=== PATIENT | female | born 1965 | race Caucasian/White ===

== ENCOUNTER 2025-06-09 19:15 | Observation (INO) | payer OTHER, SELFPAY ==
--- NOTE | ~2025-06-09 | US_ITS ---
LIMITED ABDOMINAL ULTRASOUND INDICATION: Choledocholithiasis vs cholangitis COMPARISON: CT of same day FINDINGS: Liver: Monotonous in echotexture, consistent with underlying fatty infiltrate. There is hepatopetal flow in the portal vein. Common bile duct: Dilated at 8 mm, unchanged from the CT of same day. The gallstone seen in the CBD by CT is not seen sonographically. Gallbladder: The gallbladder wall is normal in thickness. The tiny gallstone seen by CT is not identified sonographically. No stones were seen. There is gallbladder sludge. Regalado's sign: Negative Pancreas: The imaged portions appear normal. Right kidney: Right kidney appears normal on the images provided. IMPRESSION: CBD is still dilated at 8 mm. Gallbladder sludge. Fatty liver. Reviewed, dictated and finalized at location A. DING INSPECTOR
--- NOTE | ~2025-06-09 | XR_ITS ---
EXAMINATION: X-ray ERCP INDICATION: Pain. COMPARISON: None TECHNIQUE: 4 fluoroscopic images of the right upper quadrant were obtained during ERCP. Fluoroscopy exposure time was 343 seconds. Air Kerma 59.75 mGy. FINDINGS/IMPRESSION: No radiologist was present or involved at the time of the procedure. Static images were submitted for interpretation. Images demonstrate opacification of the CBD and part of the intrahepatic biliary tree. Fluoroscopic documentation of ERCP. Please refer to the operative note for complete procedural details Reviewed, dictated and finalized at location A. [employer] E[employer]ICS MANAGER
--- NOTE | ~2025-06-09 | CT_ITS ---
EXAMINATION: CT abdomen pelvis w con DATE: 06/10/2025 01:34 INDICATION: Generalized abdominal pain. TECHNIQUE: Computed tomography (CT) of the abdomen and pelvis was performed with 100 mL Omnipaque 350 intravenous contrast. Automated exposure control and iterative reconstruction technique were employed. The dose-length product was 453.49 mGy-cm. COMPARISON: None. FINDINGS: The visualized portions of the lung bases demonstrate mild atelectasis. No pleural effusion. The heart size is normal. No pericardial effusion. There is a small sliding hiatal hernia. There is diffuse hepatic steatosis. There is a gallstone in the gallbladder, which is normal in size. There is a 5 mm stone in the common bile duct. The common duct is mildly dilated to 8 mm. There is enhancement of the common bile duct pulido. The spleen, pancreas, adrenal glands, and kidneys are normal. There is diverticulosis of the colon without evidence of diverticulitis. There are no dilated loops of bowel. The appendix is normal. There are no pathologically enlarged lymph nodes. There is no free intraperitoneal fluid. There are bilateral hip arthroplasties. There is severe thoracic and lumbar spondylosis. IMPRESSION: 1. 5 mm stone in the common bile duct with mildly dilated common duct. Enhancement of the common bile duct pulido is suspicious for ascending cholangitis. 2. Cholelithiasis. Reviewed, dictated and finalized at location E. SPRINKLER IMPRESSION: 1. 5 mm stone in the common bile duct with mildly dilated common duct. Enhancem ent of the common bile duct pulido is suspicious for ascending cholangitis. 2. Cholelithiasis.
[2025-06-09 19:19] VITALS: BP 130/59; PULSE 65; RESP 18; TEMP 36.4; O2SAT 100
[2025-06-09 23:14] VITALS: BP 114/78; O2SAT 100
[2025-06-09 23:15] VITALS: BP 127/80; O2SAT 98
[2025-06-09 23:28] LABS: Hematocrit 44.1 % (37.0-47.0); Hemoglobin 14.8 g/dL (12.0-15.0); Immature Granulocyte Percent A 0.2 % (0-0.5); Lymphocytes Absolute Auto 0.92 K/mm3 (0.9-3.2); Mean Corpuscular HGB Conc 33.6 g/dl (32-36); Mean Corpuscular Hemoglobin 30.0 pg (26-34); Mean Corpuscular Volume 89.3 fl (80-100); Nucleated Red Blood Cells Absolute Auto 0.000 K/mm3 (0.0-0.012); Nucleated Red Blood Cells Perc 0.0 % (0.0-0.2); Platelet Count Result 178 k/mm3 (150-375); Red Blood Count 4.94 M/mm3 (4.2-5.4); White Blood Count 4.1 K/mm3 (4.5-10.0)
[2025-06-09 23:29] LABS: Add Urine Microscopic? YES; Appearance Urine Clear (Clear); Glucose Urine UA Negative (Negative); Leukocyte Esterase Ur Negative LEU/UL (Negative); Nitrate Urine Negative (Negative); Specific Grav Ur 1.009 (1.001-1.035)
[2025-06-09 23:31] VITALS: BP 114/71; O2SAT 97
[2025-06-09 23:37] LABS: Alanine Aminotransferase 604 U/L (6-35); Albumin Level 4.8 g/dL (3.5-5.1); Alkaline Phosphatase 142 U/L (38-126); Anion Gap 8 mmol/L (4-12); Aspartate Amino Transferase 555 U/L (14-36); Bilirubin,Total 5.0 mg/dL (0.2-1.3); Blood Urea Nitrogen 11 mg/dL (7-17); Calcium 9.5 mg/dL (8.4-10.2); Carbon Dioxide 26 mmol/L (22-30); Chloride 101 mmol/L (98-107); Estimated CRCL calculation 57 ml/min; Estimated Glomerular Filt Rate > 60; Glucose 104 mg/dL (65-110); Lipase 165 U/L (23-300); Potassium 3.9 mmol/L (3.4-5.0); Sodium 135 mmol/L (137-145); Total Protein 8.1 g/dL (6.3-8.2)
[2025-06-09 23:45] VITALS: BP 112/70; O2SAT 97
[2025-06-10] VITALS (36 sets, daily range): BP systolic 90–130; BP diastolic 53–79; PULSE 50–75; RESP 14–20; TEMP 36–36.4; O2SAT 92–100; BMI 24.7
--- NOTE | 2025-06-10 00:34 | ED.ABDPAIN ---
HPI - Abdominal Pain General Chief Complaint: Abdominal Pain <Yoko Ivey APRN - Last Filed: 06/10/25 03:36> Stated Complaint: abd pain <Yoko Ivey APRN - Last Filed: 06/10/25 03:36> Time Seen by Provider: 06/09/25 23:40 <Yoko Ivey APRN - Last Filed: 06/10/25 03:36> History of Present Illness HPI narrative: Patient is a 60-year-old female who presents to the ER with abdominal pain and bloating for the past couple of months. She reports she has had weekly episodes of these symptoms but over the past week they have become more frequent. Patient endorses decreased p.o. intake and increased gassiness. She also endorses increased water intake and orange urine. Patient endorses a history of acid reflux and H pylori. She denies any recent fevers, urinary symptoms, or chest pain. Patient does reports her abdominal pain occasionally radiates to her back. <Yoko Ivey APRN - Last Filed: 06/10/25 03:36> Related Data Home Medications: Home Medications ?Medication ?Instructions ?Recorded ?Confirmed ?Last Taken ?Type No Home Medications 06/10/25 06/10/25 Unknown History <Yoko Ivey APRN - Last Filed: 06/10/25 03:36> Allergies/Adverse Reactions: Allergies Allergy/AdvReac Type Severity Reaction Status Date / Time Penicillins Allergy Unknown Rash Verified 06/10/25 13:34 <Yoko Ivey APRN - Last Filed: 06/10/25 03:36> Review of Systems Review of Systems: All systems reviewed & are unremarkable except as noted in HPI and below <Yoko Ivey APRN - Last Filed: 06/10/25 03:36> [facility] Past Medical History Medical History: Medical History (Updated 06/10/25 @ 18:41 by Latanya Clements MD) Fatty liver Upper abdominal pain Elevated liver enzymes <Yoko Ivey APRN - Last Filed: 06/10/25 03:36> Social History Social History: Social History Smoking packs per day: 1 Smoking cigarettes per day: 20.0 Years smoked: 40 Smoking pack-years: 40.00 Smoking status: Current every day smoker Tobacco type: cigarettes Alcohol intake: never Substance use: never Substance use type: does not use Lack of Transportation: No Lack of Food: Never True Current Housing: I Have Housing Concerned About Future Housing: No Difficulty Paying Gas/Electric Bills: No Difficulty Paying for Meds: No Currently Unemployed: No Education: High School Diploma/GED Difficulty w/ Childcare or Family Care: No Spiritual care concerns: No <Yoko Ivey, GOVERNMENT AFFAIRS RESEARCHER - Last Filed: 06/10/25 03:36> Exam Narrative: GENERAL: Ill appearing, well-nourished, non-toxic, in no acute distress. HEAD: Normocephalic, atraumatic. NECK: Supple. No adenopathy, no masses. RESPIRATORY: Airway patent, respirations nonlabored. Clear to auscultation bilaterally, no rales, rhonchi, wheezing. CARDIOVASCULAR: Regular rate and rhythm without murmurs, rubs, or gallops. Peripheral pulses 2+ and equal bilaterally. ABDOMINAL: Soft, nontender, mildly distended. Normoactive BS. MUSCULOSKELETAL: Moves all extremities. Strength/ROM intact without gross deformities. SKIN: Warm, dry, slightly jaundice. No rashes. NEURO: A&O X3. Speech clear. Cranial nerves II-XII intact. No ataxic movements. PSYCHIATRIC: Appropriate mood and affect. Normal interaction. <Yoko Ivey, GOVERNMENT AFFAIRS RESEARCHER - Last Filed: 06/10/25 03:36> Course Course Emergency Course: Patient signed out to me pending result of CT scan (significant delay in interpretation overnight by stat rad for unclear reasons) which results as below which appears equivocal for choledocholithiasis versus cholangitis. RUQ US order placed (will not be performed until after 7am). Patient is assessed at bedside at approximately 5:05 a.m.. She reports being pain free at this time. She does continue to be gassy. Discussed her work up findings thus far. Discussed with on-call lyft driver Dr Meeks who confirms that he does ERCP. He states it is reasonable to start antibiotics and he requests that surgery also be consulted and that patient be admitted to the hospitalist. Antibiotics broad spectrum to cover gram negative enterics such as E coli, Enterobacter, Pseudomonas. The initial consideration was Zosyn but patient lists an allergy to penicillins. Given this, I did discuss with pharmacist Kristopher. Decision was made to start meropenem given this will provide coverage for these organisms. Blood culture ordered. Discussed with education courses sales representative general surgeon Dr Kingsley. Amenable to consultation. Discussed with hospitalist Dr Ang who accepts admission. She has otherwise been hemodynamically stable. <Latanya Clements MD - Last Filed: 06/10/25 18:41> Vital Signs Vital signs: Vital Signs Temperature 97.6 F 06/09/25 19:19 Pulse Rate 65 06/09/25 19:19 Respiratory Rate 18 06/09/25 19:19 Blood Pressure 130/59 L 06/09/25 19:19 Pulse Oximetry 100 06/09/25 19:19 Oxygen Delivery Room Air 06/09/25 19:19 Temperature 97.4 F L 06/10/25 14:57 Pulse Rate 54 L 06/10/25 15:57 Respiratory Rate 18 06/10/25 15:57 Blood Pressure 125/73 06/10/25 15:57 Pulse Oximetry 98 06/10/25 15:57 Oxygen Delivery Room Air 06/10/25 15:57 Oxygen Flow Rate 5 06/10/25 15:07 <Yoko Ivey APRN - Last Filed: 06/10/25 03:36> Vital Signs Temperature 97.6 F 06/09/25 19:19 Pulse Rate 65 06/09/25 19:19 Respiratory Rate 18 06/09/25 19:19 Blood Pressure 130/59 L 06/09/25 19:19 Pulse Oximetry 100 06/09/25 19:19 Oxygen Delivery Room Air 06/09/25 19:19 Temperature 97.4 F L 06/10/25 14:57 Pulse Rate 54 L 06/10/25 15:57 Respiratory Rate 18 06/10/25 15:57 Blood Pressure 125/73 06/10/25 15:57 Pulse Oximetry 98 06/10/25 15:57 Oxygen Delivery Room Air 06/10/25 15:57 Oxygen Flow Rate 5 06/10/25 15:07 <Latanya Clements MD - Last Filed: 06/10/25 18:41> MDM - Abdominal Pain MDM Narrative Medical decision making narrative: Patient is a 60-year-old female who presents to the ER with abdominal pain and bloating for the past couple of months. She reports she has had weekly episodes of these symptoms but over the past week they have become more frequent. Patient endorses decreased p.o. intake and increased gassiness. She also endorses increased water intake and orange urine. Patient endorses a history of acid reflux and H pylori. She denies any recent fevers, urinary symptoms, or chest pain. Patient does reports her abdominal pain occasionally radiates to her back. Labs Ordered: CBC, CMP, PTT, INR, hepatitis screen, ESR, CRP, vitamin B12/folic acid, ammonia, iron/TIBC panel, TSH, lipase, UA Imaging Ordered: CT abdomen pelvis with contrast Medications Ordered: 1 L normal saline IV bolus 0300- Care signed out to Dr. Clements pending CT scan results. <Yoko Ivey APRN - Last Filed: 06/10/25 03:36> Differential Diagnosis Differential diagnosis: Likely abdominal pain, constipation, diverticulitis, gastroenteritis, small bowel obstruction and other (cholecystitis) <Yoko Ivey APRN - Last Filed: 06/10/25 03:36> Lab Data Attestation: I reviewed the patient's lab results. <Yoko Ivey APRN - Last Filed: 06/10/25 03:36> Result diagrams: 06/09/25 23:21 06/09/25 23:21 <Yoko Ivey GOVERNMENT AFFAIRS RESEARCHER - Last Filed: 06/10/25 03:36> Labs: Lab Results 06/09/25 06/09/25 06/09/25 Range/Units 23:10 23:20 23:21 WBC 4.1 L (4.5-10.0) K/mm3 RBC 4.94 (4.2-5.4) M/mm3 Hgb 14.8 (12.0-15.0) g/dL Hct 44.1 (37.0-47.0) % MCV 89.3 (80-100) fl MCH 30.0 (26-34) pg MCHC 33.6 (32-36) g/dl RDW 12.2 (11.5-14.5) % Plt Count 178 (150-375) k/mm3 MPV 9.6 (7.4-10.4) fl Immature Gran % (Auto) 0.2 (0-0.5) % Neut % (Auto) 68.7 (45.5-73.1) % Lymph % (Auto) 22.3 (18.3-44.2) % [place] % (Auto) 7.3 (2.6-8.5) % Eos % (Auto) 1.0 (0-4.4) % Baso % (Auto) 0.5 (0.2-1.2) % Lymph # (Auto) 0.92 (0.9-3.2) K/mm3 [place] # (Auto) 0.3 (0.1-0.6) K/mm3 Eos # (Auto) 0.0 (0-0.3) K/mm3 Baso # (Auto) 0.0 (0.0-0.1) K/mm3 Abs Immat Gran (auto) 0.01 (0.00-0.031) K/mm3 Absolute Neuts (auto) 2.8 (1.3-6.7) K/mm3 Absolute Nucleated RBC 0.000 (0.0-0.012) K/mm3 Nucleated RBC % 0.0 (0.0-0.2) % ESR 15 (0-20) mm/hr PT (11.1-14.7) Seconds INR APTT (22.3-36.8) Seconds Sodium 135 L (137-145) mmol/L Potassium 3.9 (3.4-5.0) mmol/L Chloride 101 (98-107) mmol/L Carbon Dioxide 26 (22-30) mmol/L Anion Gap 8 (4-12) mmol/L BUN 11 (7-17) mg/dL Creatinine 0.87 (0.7-1.0) mg/dL Estim Creat Clear Calc 57 ml/min Estimated GFR > 60 (59 - ) Glucose 104 (65-110) mg/dL Calcium 9.5 (8.4-10.2) mg/dL Iron (37-170) ug/dL TIBC (261-462) ug/dL % Saturation (20-50) % Ferritin (11.1-264) ng/mL Total Bilirubin 5.0 H (0.2-1.3) mg/dL Direct Bilirubin (0-0.3) mg/dL Indirect Bilirubin (0-1.1) mg/dL AST 555 H (14-36) U/L ALT 604 H (6-35) U/L Alkaline Phosphatase 142 H (38-126) U/L Ammonia (9-30) umol/L C-Reactive Protein (<1.0) mg/dL Total Protein 8.1 (6.3-8.2) g/dL Albumin 4.8 (3.5-5.1) g/dL Lipase 165 (23-300) U/L Vitamin B12 (239-931) pg/mL Folate (2.76->20) ng/mL TSH (Reflex) (0.465-4.68) uIU/mL Free T4 (0.78-2.19) ng/dL Total T3 (0.82-1.58) NG/ML Urine Color Dark yellow (Yellow) Urine Appearance Clear (Clear) Urine pH 5.5 (5.0-9.0) Ur Specific [place] 1.009 (1.001-1.035) Urine Protein Negative (Negative) mg/dL Urine Glucose (UA) Negative (Negative) mg/dL Urine Ketones Negative (Negative) mg/dL Ur Blood (Man) Negative (Negative) Urine Nitrate Negative (Negative) Urine Bilirubin 2+ H (Negative) Urine Urobilinogen 1.0 (<2.0) mg/dL Leukocyte Esterase Rfl Negative (Negative) REFUGIO/UL Ethyl Alcohol (<10) mg/dL Hepatitis A IgM Ab (Negative) Hep Bs Antigen (Negative) Hep Bs Antibody Hep B Core Total Ab Hep B Core IgM Ab (Negative) Hepatitis C Ab Screen (Negative) 06/10/25 06/10/25 Range/Units 00:58 00:58 WBC (4.5-10.0) K/mm3 RBC (4.2-5.4) M/mm3 Hgb (12.0-15.0) g/dL Hct (37.0-47.0) % MCV (80-100) fl MCH (26-34) pg MCHC (32-36) g/dl RDW (11.5-14.5) % Plt Count (150-375) k/mm3 MPV (7.4-10.4) fl Immature Gran % (Auto) (0-0.5) % Neut % (Auto) (45.5-73.1) % Lymph % (Auto) (18.3-44.2) % [place] % (Auto) (2.6-8.5) % Eos % (Auto) (0-4.4) % Baso % (Auto) (0.2-1.2) % Lymph # (Auto) (0.9-3.2) K/mm3 [place] # (Auto) (0.1-0.6) K/mm3 Eos # (Auto) (0-0.3) K/mm3 Baso # (Auto) (0.0-0.1) K/mm3 Abs Immat Gran (auto) (0.00-0.031) K/mm3 Absolute Neuts (auto) (1.3-6.7) K/mm3 Absolute Nucleated RBC (0.0-0.012) K/mm3 Nucleated RBC % (0.0-0.2) % ESR (0-20) mm/hr PT 13.2 (11.1-14.7) Seconds INR 1.0 APTT 26.1 (22.3-36.8) Seconds Sodium (137-145) mmol/L Potassium (3.4-5.0) mmol/L Chloride (98-107) mmol/L Carbon Dioxide (22-30) mmol/L Anion Gap (4-12) mmol/L BUN (7-17) mg/dL Creatinine (0.7-1.0) mg/dL Estim Creat Clear Calc ml/min Estimated GFR (59 - ) Glucose (65-110) mg/dL Calcium (8.4-10.2) mg/dL Iron 99 (37-170) ug/dL TIBC 290 (261-462) ug/dL % Saturation 34 (20-50) % Ferritin 347.00 H (11.1-264) ng/mL Total Bilirubin (0.2-1.3) mg/dL Direct Bilirubin 1.9 H (0-0.3) mg/dL Indirect Bilirubin 1.4 H (0-1.1) mg/dL AST (14-36) U/L ALT (6-35) U/L Alkaline Phosphatase (38-126) U/L Ammonia 11 (9-30) umol/L C-Reactive Protein < 0.5 (<1.0) mg/dL Total Protein (6.3-8.2) g/dL Albumin (3.5-5.1) g/dL Lipase (23-300) U/L Vitamin B12 856.0 (239-931) pg/mL Folate 10.3 (2.76->20) ng/mL TSH (Reflex) 0.204 L (0.465-4.68) uIU/mL Free T4 1.40 (0.78-2.19) ng/dL Total T3 1.33 (0.82-1.58) NG/ML Urine Color (Yellow) Urine Appearance (Clear) Urine pH (5.0-9.0) Ur Specific [place] (1.001-1.035) Urine Protein (Negative) mg/dL Urine Glucose (UA) (Negative) mg/dL Urine Ketones (Negative) mg/dL Ur Blood (Man) (Negative) Urine Nitrate (Negative) Urine Bilirubin (Negative) Urine Urobilinogen (<2.0) mg/dL Leukocyte Esterase Rfl (Negative) REFUGIO/UL Ethyl Alcohol < 10 (<10) mg/dL Hepatitis A IgM Ab Negative (Negative) Hep Bs Antigen Negative (Negative) Hep Bs Antibody Negative Hep B Core Total Ab Cancelled Pending Hep B Core IgM Ab Negative (Negative) Hepatitis C Ab Screen Negative (Negative) <Yoko Ivey, GOVERNMENT AFFAIRS RESEARCHER - Last Filed: 06/10/25 03:36> Lab Results 06/09/25 06/09/25 06/09/25 Range/Units 23:10 23:20 23:21 WBC 4.1 L (4.5-10.0) K/mm3 RBC 4.94 (4.2-5.4) M/mm3 Hgb 14.8 (12.0-15.0) g/dL Hct 44.1 (37.0-47.0) % MCV 89.3 (80-100) fl MCH 30.0 (26-34) pg MCHC 33.6 (32-36) g/dl RDW 12.2 (11.5-14.5) % Plt Count 178 (150-375) k/mm3 MPV 9.6 (7.4-10.4) fl Immature Gran % (Auto) 0.2 (0-0.5) % Neut % (Auto) 68.7 (45.5-73.1) % Lymph % (Auto) 22.3 (18.3-44.2) % [place] % (Auto) 7.3 (2.6-8.5) % Eos % (Auto) 1.0 (0-4.4) % Baso % (Auto) 0.5 (0.2-1.2) % Lymph # (Auto) 0.92 (0.9-3.2) K/mm3 [place] # (Auto) 0.3 (0.1-0.6) K/mm3 Eos # (Auto) 0.0 (0-0.3) K/mm3 Baso # (Auto) 0.0 (0.0-0.1) K/mm3 Abs Immat Gran (auto) 0.01 (0.00-0.031) K/mm3 Absolute Neuts (auto) 2.8 (1.3-6.7) K/mm3 Absolute Nucleated RBC 0.000 (0.0-0.012) K/mm3 Nucleated RBC % 0.0 (0.0-0.2) % ESR 15 (0-20) mm/hr PT (11.1-14.7) Seconds INR APTT (22.3-36.8) Seconds Sodium 135 L (137-145) mmol/L Potassium 3.9 (3.4-5.0) mmol/L Chloride 101 (98-107) mmol/L Carbon Dioxide 26 (22-30) mmol/L Anion Gap 8 (4-12) mmol/L BUN 11 (7-17) mg/dL Creatinine 0.87 (0.7-1.0) mg/dL Estim Creat Clear Calc 57 ml/min Estimated GFR > 60 (59 - ) Glucose 104 (65-110) mg/dL Calcium 9.5 (8.4-10.2) mg/dL Iron (37-170) ug/dL TIBC (261-462) ug/dL % Saturation (20-50) % Ferritin (11.1-264) ng/mL Total Bilirubin 5.0 H (0.2-1.3) mg/dL Direct Bilirubin (0-0.3) mg/dL Indirect Bilirubin (0-1.1) mg/dL AST 555 H (14-36) U/L ALT 604 H (6-35) U/L Alkaline Phosphatase 142 H (38-126) U/L Ammonia (9-30) umol/L C-Reactive Protein (<1.0) mg/dL Total Protein 8.1 (6.3-8.2) g/dL Albumin 4.8 (3.5-5.1) g/dL Lipase 165 (23-300) U/L Vitamin B12 (239-931) pg/mL Folate (2.76->20) ng/mL TSH (Reflex) (0.465-4.68) uIU/mL Free T4 (0.78-2.19) ng/dL Total T3 (0.82-1.58) NG/ML Urine Color Dark yellow (Yellow) Urine Appearance Clear (Clear) Urine pH 5.5 (5.0-9.0) Ur Specific [place] 1.009 (1.001-1.035) Urine Protein Negative (Negative) mg/dL Urine Glucose (UA) Negative (Negative) mg/dL Urine Ketones Negative (Negative) mg/dL Ur Blood (Man) Negative (Negative) Urine Nitrate Negative (Negative) Urine Bilirubin 2+ H (Negative) Urine Urobilinogen 1.0 (<2.0) mg/dL Leukocyte Esterase Rfl Negative (Negative) REFUGIO/UL Ethyl Alcohol (<10) mg/dL Hepatitis A IgM Ab (Negative) Hep Bs Antigen (Negative) Hep Bs Antibody Hep B Core Total Ab Hep B Core IgM Ab (Negative) Hepatitis C Ab Screen (Negative) 06/10/25 06/10/25 Range/Units 00:58 00:58 WBC (4.5-10.0) K/mm3 RBC (4.2-5.4) M/mm3 Hgb (12.0-15.0) g/dL Hct (37.0-47.0) % MCV (80-100) fl MCH (26-34) pg MCHC (32-36) g/dl RDW (11.5-14.5) % Plt Count (150-375) k/mm3 MPV (7.4-10.4) fl Immature Gran % (Auto) (0-0.5) % Neut % (Auto) (45.5-73.1) % Lymph % (Auto) (18.3-44.2) % [place] % (Auto) (2.6-8.5) % Eos % (Auto) (0-4.4) % Baso % (Auto) (0.2-1.2) % Lymph # (Auto) (0.9-3.2) K/mm3 [place] # (Auto) (0.1-0.6) K/mm3 Eos # (Auto) (0-0.3) K/mm3 Baso # (Auto) (0.0-0.1) K/mm3 Abs Immat Gran (auto) (0.00-0.031) K/mm3 Absolute Neuts (auto) (1.3-6.7) K/mm3 Absolute Nucleated RBC (0.0-0.012) K/mm3 Nucleated RBC % (0.0-0.2) % ESR (0-20) mm/hr PT 13.2 (11.1-14.7) Seconds INR 1.0 APTT 26.1 (22.3-36.8) Seconds Sodium (137-145) mmol/L Potassium (3.4-5.0) mmol/L Chloride (98-107) mmol/L Carbon Dioxide (22-30) mmol/L Anion Gap (4-12) mmol/L BUN (7-17) mg/dL Creatinine (0.7-1.0) mg/dL Estim Creat Clear Calc ml/min Estimated GFR (59 - ) Glucose (65-110) mg/dL Calcium (8.4-10.2) mg/dL Iron 99 (37-170) ug/dL TIBC 290 (261-462) ug/dL % Saturation 34 (20-50) % Ferritin 347.00 H (11.1-264) ng/mL Total Bilirubin (0.2-1.3) mg/dL Direct Bilirubin 1.9 H (0-0.3) mg/dL Indirect Bilirubin 1.4 H (0-1.1) mg/dL AST (14-36) U/L ALT (6-35) U/L Alkaline Phosphatase (38-126) U/L Ammonia 11 (9-30) umol/L C-Reactive Protein < 0.5 (<1.0) mg/dL Total Protein (6.3-8.2) g/dL Albumin (3.5-5.1) g/dL Lipase (23-300) U/L Vitamin B12 856.0 (239-931) pg/mL Folate 10.3 (2.76->20) ng/mL TSH (Reflex) 0.204 L (0.465-4.68) uIU/mL Free T4 1.40 (0.78-2.19) ng/dL Total T3 1.33 (0.82-1.58) NG/ML Urine Color (Yellow) Urine Appearance (Clear) Urine pH (5.0-9.0) Ur Specific [place] (1.001-1.035) Urine Protein (Negative) mg/dL Urine Glucose (UA) (Negative) mg/dL Urine Ketones (Negative) mg/dL Ur Blood (Man) (Negative) Urine Nitrate (Negative) Urine Bilirubin (Negative) Urine Urobilinogen (<2.0) mg/dL Leukocyte Esterase Rfl (Negative) REFUGIO/UL Ethyl Alcohol < 10 (<10) mg/dL Hepatitis A IgM Ab Negative (Negative) Hep Bs Antigen Negative (Negative) Hep Bs Antibody Negative Hep B Core Total Ab Cancelled Pending Hep B Core IgM Ab Negative (Negative) Hepatitis C Ab Screen Negative (Negative) <Latanya Clements MD - Last Filed: 06/10/25 18:41> Imaging Data Radiologist's impression: ITS Impressions Abdomen/Pelvis CT 06/10/25 07:21 IMPRESSION: 1. 5 mm stone in the common bile duct with mildly dilated common duct. Enhancement of the common bile duct pulido is suspicious for ascending cholangitis. 2. Cholelithiasis. Abdomen Ultrasound 06/10/25 10:30 IMPRESSION: CBD is still dilated at 8 mm. Gallbladder sludge. Fatty liver. <Yoko Ivey APRN - Last Filed: 06/10/25 03:36> ITS Impressions Abdomen/Pelvis CT 06/10/25 07:21 IMPRESSION: 1. 5 mm stone in the common bile duct with mildly dilated common duct. Enhancement of the common bile duct pulido is suspicious for ascending cholangitis. 2. Cholelithiasis. Abdomen Ultrasound 06/10/25 10:30 IMPRESSION: CBD is still dilated at 8 mm. Gallbladder sludge. Fatty liver. CT Abd & Pelvis with contrast Stat Rad Impression: 4 mm obstructing stone within the distal common bile duct resulting in up stream duct dilation measuring 9 mm in diameter. Enhancement of the common bile duct pulido can be seen in the setting of ascending cholangitis. Incidental findings: Cholelithiasis. <Latanya Clements MD - Last Filed: 06/10/25 18:41> Discharge Plan Discharge Clinical Impression: Choledocholithiasis, Cholelithiasis, Hyperbilirubinemia <Yoko Ivey APRN - Last Filed: 06/10/25 03:36> Patient Disposition: Still a Patient <Yoko Ivey APRN - Last Filed: 06/10/25 03:36> Condition: Stable <Yoko Ivey APRN - Last Filed: 06/10/25 03:36>
[2025-06-10] MEDS: SODIUM CHLORIDE 0.9% IV 1,000 ML 999 ML IV CONT (01:04)
[2025-06-10 01:16] LABS: Iron 99 ug/dL (37-170)
[2025-06-10 01:17] LABS: Ammonia 11 umol/L (9-30)
[2025-06-10 01:18] LABS: INR 1.0; Partial Thromboplastin Time 26.1 Seconds (22.3-36.8); Prothrombin Time 13.2 Seconds (11.1-14.7)
[2025-06-10 01:20] LABS: CRP < 0.5 mg/dL (<1.0)
[2025-06-10 01:26] LABS: Percent Iron Saturation 34 % (20-50)
[2025-06-10 01:49] LABS: Hepatitis B Surface Antigen Negative (Negative)
[2025-06-10 01:54] LABS: Thyroid Stimulating Hormone Reflex 0.204 uIU/mL (0.465-4.68)
[2025-06-10 01:55] LABS: HAV RESULT Negative (Negative); Hepatitis B Core IgM Result Negative (Negative)
[2025-06-10 01:58] LABS: Ferritin 347.00 ng/mL (11.1-264)
[2025-06-10 02:28] LABS: Vitamin B12 856.0 pg/mL (239-931)
[2025-06-10 02:42] LABS: Free T4 Free Thyroxine Reflex 1.40 ng/dL (0.78-2.19)
[2025-06-10 03:07] LABS: Total Triiodothyronine (T3) 1.33 NG/ML (0.82-1.58)
[2025-06-10 04:09] LABS: Hepatitis B Surface Anti Res Negative
--- NOTE | 2025-06-10 05:46 | WPCEDHO ---
ED Hand Off Checklist All vitals saved:Y IV Site documented:Y All med administrations documented:Y Triage Note Triage Note Pt arrives w/ c/o bloating, N/V, 06/09/25 19:19 all over abd pain x 6 months but has gotten worse over the past week. Constipation followed by diarrhea in cycles. Allergies Penicillins Allergy (Unknown, Verified 06/09/25 19:21) Rash Administered/Completed Medications Discontinued Medications Sodium Chloride (Normal Saline Iv) 1,000 mls @ 999 mls/hr IV CONT .[id number] STA Stop: 06/10/25 01:32 Last Infusion: 06/10/25 01:59 Dose: Infused Documented By: Admin: 06/10/25 01:04 Dose: 999 mls/hr Documented By: DANISHA Interventions/Assessments IV / Saline Lock, Insert Start: 06/09/25 23:08 Freq: STAT Status: Active Protocol: Document 06/09/25 23:18 [facility] (Rec: 06/09/25 23:18 [facility] [id number]) IV Assessment Peripheral Access Left Antecubital IV Catheter Access Initiated IV Insertion Date 06/09/25 IV Insertion Time 23:18 Catheter Gauge 18 IV Insertion 1 Attempts Ultrasound Used for No Placement IV Site Assessment WNL IV Care and WNL Maintenance PA: Gastrointestinal Assessment Start: 06/09/25 19:16 Freq: Status: Active Protocol: Document 06/09/25 23:18 [facility] (Rec: 06/09/25 23:19 [facility] [id number]) GI Assessment Gastrointestinal Bloating,Constipation,Diarrhea,Nausea,Pain,Vomiting Symptoms Description Tender Pattern Normal Last Vital Signs Temperature 97.6 F 06/09/25 19:19 Pulse Rate 65 06/09/25 19:19 Respiratory Rate 18 06/09/25 19:19 Pulse Oximetry 98 06/10/25 05:31 Blood Pressure 104/65 06/10/25 05:31 Blood Pressure Mean 76 06/10/25 05:31 Oxygen Delivery Room Air 06/09/25 19:19 Weight 71.8 kg 06/09/25 19:19 Last Result - Abnormals Only WBC 4.1 K/mm3 (4.5-10.0) L 06/09/25 23:21 Sodium 135 mmol/L (137-145) L 06/09/25 23:21 Ferritin 347.00 ng/mL (11.1-264) H 06/10/25 00:58 Total Bilirubin 5.0 mg/dL (0.2-1.3) H 06/09/25 23:21 Direct Bilirubin 1.9 mg/dL (0-0.3) H 06/10/25 00:58 Indirect Bilirubin 1.4 mg/dL (0-1.1) H 06/10/25 00:58 AST 555 U/L (14-36) H 06/09/25 23:21 ALT 604 U/L (6-35) H 06/09/25 23:21 Alkaline Phosphatase 142 U/L (38-126) H 06/09/25 23:21 TSH (Reflex) 0.204 uIU/mL (0.465-4.68) L 06/10/25 00:58 Urine Bilirubin 2+ (Negative) H 06/09/25 23:10 Most Recent Suicide Severity Rating Suicide Severity Rating NO RISK INDICATED 06/09/25 19:19
--- NOTE | 2025-06-10 06:07 | P.HP_ITS ---
H&P: HPI History of Present Illness Date/Time: 06/10/25 06:07 Chief Complaint: Bloating, abdominal pain, constipation, loss of appetite Narrative: A very pleasant 60-year-old female with PMH GERD taking p.r.n. 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 For the past month she has had 1 day per week of food triggered abdominal bloating and diffuse abdominal pain, copious flatus, nausea and loss of appetite, constipation. Sometime she feels so bloated she cannot get comfortable to sleep. Now it has happened 2 days in a row which prompted the patient to seek evaluation. T bili 5.0, direct bilirubin 1.9, indirect 1.4. AST 555, ALT 604, alkaline phosphatase 142, lipase 165. Urinalysis unremarkable aside from 2+ bilirubin, acute hepatitis screen negative. CT abdomen and pelvis with contrast stat read reveals 4 mm obstructing stone within the distal common bile duct resulting in upstream duct dilation measuring 9 mm in diameter. Enhancement of the common bile duct possibly indicating ascending cholangitis. Patient was resting comfortably and has mild tenderness diffusely to deep palpation of all 4 quadrants of the abdomen. Negative Regalado sign. Afebrile, WBC 4100, mild low. GI and general surgery consulted from the ER. Meropenem started. Patient reports while receiving penicillin for H pylori she developed hives after 3 weeks, but she is okay with 1 week of penicillin with that length of therapy. Review of Systems Review of Systems: All systems reviewed & are unremarkable except as noted in HPI and below (Subjective) Meds Home Medications and Allergies Allergies Allergy/AdvReac Type Severity Reaction Status Date / Time Penicillins Allergy Unknown Rash Verified 06/09/25 19:21 Vital Signs Vital Signs - 24 hr 06/09/25 19:19 06/09/25 23:14 06/09/25 23:15 Temperature 97.6 F Pulse Rate 65 Respiratory Rate 18 Blood Pressure 130/59 L 114/78 127/80 Pulse Oximetry 100 100 98 Oxygen Delivery Room Air 06/09/25 23:31 06/09/25 23:45 06/10/25 00:00 Temperature Pulse Rate Respiratory Rate Blood Pressure 114/71 112/70 111/71 Pulse Oximetry 97 97 97 Oxygen Delivery 06/10/25 00:16 06/10/25 00:30 06/10/25 00:45 Temperature Pulse Rate Respiratory Rate Blood Pressure 118/67 116/73 116/74 Pulse Oximetry 97 98 99 Oxygen Delivery 06/10/25 01:01 06/10/25 01:15 06/10/25 01:38 Temperature Pulse Rate Respiratory Rate Blood Pressure 111/62 111/63 113/75 Pulse Oximetry 99 97 100 Oxygen Delivery 06/10/25 01:46 06/10/25 02:00 06/10/25 02:15 Temperature Pulse Rate Respiratory Rate Blood Pressure 102/69 100/63 103/61 Pulse Oximetry 99 97 96 Oxygen Delivery 06/10/25 02:30 06/10/25 02:45 06/10/25 03:05 Temperature Pulse Rate Respiratory Rate Blood Pressure 107/73 108/73 107/65 Pulse Oximetry 92 94 99 Oxygen Delivery 06/10/25 03:15 06/10/25 03:30 06/10/25 04:01 Temperature Pulse Rate Respiratory Rate Blood Pressure 108/70 105/62 104/67 Pulse Oximetry 96 98 96 Oxygen Delivery 06/10/25 04:15 06/10/25 04:30 06/10/25 04:45 Temperature Pulse Rate Respiratory Rate Blood Pressure 102/66 98/65 L 90/55 L Pulse Oximetry 96 96 96 Oxygen Delivery 06/10/25 05:00 06/10/25 05:19 06/10/25 05:31 Temperature Pulse Rate Respiratory Rate Blood Pressure 91/53 L 110/68 104/65 Pulse Oximetry 95 96 98 Oxygen Delivery Exam Const: General: comfortable and no acute distress HENMT: Mouth: Yes moist mucous membranes Eyes: Pupils: Equal, round and reactive pupils present Neck: Neck: supple Resp: Effort & Inspection: normal respiratory effort Auscultation: clear to auscultation bilaterally Cardio: Rate: regular rate Rhythm: regular rhythm Heart sounds: no murmurs GI: Inspection: non-distended GI Palp: Yes Soft to palpation, Yes Tenderness to palpation present (GI) and No Guarding due to palpation present (GI) Auscultation: normal bowel sounds : General: Yes bladder normal to palpation Neuro: Motor exam (neuro): 5/5 motor strength present throughout Extrem: General: no edema H&P: Results Labs Labs: Short CBC 06/09/25 Range/Units 23:21 WBC 4.1 L (4.5-10.0) K/mm3 Hgb 14.8 (12.0-15.0) g/dL Hct 44.1 (37.0-47.0) % Plt Count 178 (150-375) k/mm3 BMP 06/09/25 23:21 Sodium 135 L Potassium 3.9 Chloride 101 Carbon Dioxide 26 BUN 11 Creatinine 0.87 Glucose 104 Calcium 9.5 Liver Function 06/09/25 06/10/25 Range/Units 23:21 00:58 Total Bilirubin 5.0 H (0.2-1.3) mg/dL Direct Bilirubin 1.9 H (0-0.3) mg/dL AST 555 H (14-36) U/L ALT 604 H (6-35) U/L Alkaline Phosphatase 142 H (38-126) U/L Albumin 4.8 (3.5-5.1) g/dL Urine 06/09/25 Range/Units 23:10 Urine Color Dark yellow (Yellow) Urine Appearance Clear (Clear) Urine pH 5.5 (5.0-9.0) Ur Specific [place] 1.009 (1.001-1.035) Urine Protein Negative (Negative) mg/dL Urine Glucose (UA) Negative (Negative) mg/dL Assessment and Plan Assessment and plan (1) Abdominal pain: Code(s): R10.9 - Unspecified abdominal pain Status: Acute (2) Choledocholithiasis: Code(s): K80.50 - Calculus of bile duct without cholangitis or cholecystitis without obstruction Status: Acute Plan GI/general surgery consultations. Right upper quadrant ultrasound. Meropenem. NPO. Sodium chloride infusion. Morphine, Tylenol, Zofran p.r.n.. SCDs. Full code. Hospitalist MIPS Advance Care Plan I have confirmed that the patient's Advanced Care Plan is present, code status is documented, or surrogate decision maker is listed in patient medical record.: Yes Medication Reconciliation I have utilized all available resources to obtain, update and review the patients current medications (includes all prescriptions, OTC, herbals, cannabis, and nutritional supplements).: Yes
--- NOTE | 2025-06-10 06:18 | ADMGEN ---
This patient, Catina Baugh, was admitted to Medical Room 348-. Patient/family oriented to hospital policies and general routines including ID bracelet, bed and alarms, visiting hours, pain management, procedures, bathroom and other care routines, personal items, smoking policy, room service/diet, and visiting hours. Information on how to activate the Rapid Response Team has been discussed. Patient/Family are encouraged to report perceived risks to care and to ask questions if they do not understand what they are told or what they should do.
[2025-06-10] MEDS: SODIUM CHLORIDE 0.9% IV 1,000 ML 100 ML IV CONT (07:01)
[2025-06-10] MEDS: MEROPENEM 1 GM in SODIUM CHLORIDE 0.9% IV 100 ML 200 ML IVPB (09:51)
--- NOTE | 2025-06-10 11:26 | P.CONGS_ITS ---
Assessment and Plan Assessment and plan (1) Choledocholithiasis: Code(s): K80.50 - Calculus of bile duct without cholangitis or cholecystitis without obstruction Status: Acute Assessment and Plan: Patient presented to the hospital last night with complaints of abdominal tenderness and loading, as well as nausea and vomiting x several months. She states that she initially thought this was food poisoning. Over this past month she has noticed a increased frequency in symptoms. She has trialed Gas-X and enema and has found some relief with these. Labs revealed elevated bilirubin and liver enzymes. CT demonstrated common bile duct stone with mildly dilated common duct. Enhancement of the pulido suspicious for ascending cholangitis. One stone noted in the gallbladder itself. Ultrasound was then later obtained and demonstrated dilated common bile duct at 8 mm. Gallbladder containing sludge. Fatty liver. Patient is feeling generally well this morning with minimal diffuse abdominal pain. * GI team planning for ERCP later this afternoon. Keep patient NPO for procedure. * Continue meropenem. * Spoke with patient about necessity of laparoscopic cholecystectomy due to the likelihood of another stone rolling into common bile duct in the future. Patient seems slightly apprehensive to gallbladder removal. Spoke with surgeon, Dr. Kingsley, who agrees that patient will likely need a laparoscopic cholecystectomy, whether it be this week or intervally in the near future. Plan Discussed patient's case and plan of care with Dr. Kingsley. History of Present Illness Consult details Consult date: 06/10/25 Reason for consult: other (Likely choledocholithiasis vs cholangitis) Requesting physician: Latanya Clements MD Narrative: Patient is a 60 year old female with history of cigarette smoking who presented to the hospital with abdominal pain and bloating times several months. She describes the pain as a tenderness throughout her entire abdomen. She often feels very bloated, like a balloon after eating. Also endorses nausea and vomiting with fevers. She initially thought this was food poisoning. She states that more recently within the last month she has had an episode every week. This most recent episode started 2 days ago. She has trialed Gas-X and enemas, which seem to help. She struggles with both constipation and diarrhea. She noted a decreased appetite. Never taken any pain medications for the symptoms. Upon admission, labs revealed a bilirubin of 5.0. AST and ALT elevated at 555 and 604, respectively. Alk-phos 142. Ironically normal CRP. CT of the abdomen demonstrated a 5 mm stone in the common bile duct with a mildly dilated common duct. Enhancement of the common bile duct pulido is suspicious for ascending cholangitis. One gallstone in the gallbladder, which is normal in size. General surgery team consulted at this time. Patient is started on meropenem, as she has penicillin allergy. Upon my interview, patient states she is feeling generally well since she has not eaten in a while. Her last bowel movement was yesterday morning. She ate some toast yesterday around 5:00 p.m. and has not eaten since. An abdominal ultrasound was performed this morning and demonstrated a dilated common bile duct at 8 mm. Gallbladder containing sludge. Fatty liver. No stones seen in the gallbladder with this imaging modality. [facility] Social History Social History Smoking packs per day: 1 Smoking cigarettes per day: 20.0 Years smoked: 40 Smoking pack-years: 40.00 Smoking status: Current every day smoker Tobacco type: cigarettes Alcohol intake: never Substance use: never Substance use type: does not use Lack of Transportation: No Lack of Food: Never True Current Housing: I Have Housing Concerned About Future Housing: No Difficulty Paying Gas/Electric Bills: No Difficulty Paying for Meds: No Currently Unemployed: No Education: High School Diploma/GED Difficulty w/ Childcare or Family Care: No Spiritual care concerns: No Meds Home Medications and Allergies Home Medications ?Medication ?Instructions ?Recorded ?Confirmed ?Type No Home Medications 06/10/25 06/10/25 H istory Allergies Allergy/AdvReac Type Severity Reaction Status Date / Time Penicillins Allergy Unknown Rash Verified 06/10/25 06:32 Vital Signs Vital Signs - 24 hr 06/09/25 19:19 06/09/25 23:14 06/09/25 23:15 Temperature 97.6 F Pulse Rate 65 Respiratory Rate 18 Blood Pressure 130/59 L 114/78 127/80 Pulse Oximetry 100 100 98 Oxygen Delivery Room Air 06/09/25 23:31 06/09/25 23:45 06/10/25 00:00 Temperature Pulse Rate Respiratory Rate Blood Pressure 114/71 112/70 111/71 Pulse Oximetry 97 97 97 Oxygen Delivery 06/10/25 00:16 06/10/25 00:30 06/10/25 00:45 Temperature Pulse Rate Respiratory Rate Blood Pressure 118/67 116/73 116/74 Pulse Oximetry 97 98 99 Oxygen Delivery 06/10/25 01:01 06/10/25 01:15 06/10/25 01:38 Temperature Pulse Rate Respiratory Rate Blood Pressure 111/62 111/63 113/75 Pulse Oximetry 99 97 100 Oxygen Delivery 06/10/25 01:46 06/10/25 02:00 06/10/25 02:15 Temperature Pulse Rate Respiratory Rate Blood Pressure 102/69 100/63 103/61 Pulse Oximetry 99 97 96 Oxygen Delivery 06/10/25 02:30 06/10/25 02:45 06/10/25 03:05 Temperature Pulse Rate Respiratory Rate Blood Pressure 107/73 108/73 107/65 Pulse Oximetry 92 94 99 Oxygen Delivery 06/10/25 03:15 06/10/25 03:30 06/10/25 04:01 Temperature Pulse Rate Respiratory Rate Blood Pressure 108/70 105/62 104/67 Pulse Oximetry 96 98 96 Oxygen Delivery 06/10/25 04:15 06/10/25 04:30 06/10/25 04:45 Temperature Pulse Rate Respiratory Rate Blood Pressure 102/66 98/65 L 90/55 L Pulse Oximetry 96 96 96 Oxygen Delivery 06/10/25 05:00 06/10/25 05:19 06/10/25 05:31 Temperature Pulse Rate Respiratory Rate Blood Pressure 91/53 L 110/68 104/65 Pulse Oximetry 95 96 98 Oxygen Delivery 06/10/25 06:16 06/10/25 07:59 Temperature 96.8 F L Pulse Rate 61 Respiratory Rate 18 Blood Pressure 109/76 Pulse Oximetry 97 99 Oxygen Delivery Room Air Exam 2 Const: General: comfortable and no acute distress Eyes: General: appearance normal, both eyes and all related structures Neck: Neck: supple Resp: Effort & Inspection: normal respiratory effort Cardio: Rate: regular rate GI: Inspection: non-distended GI Palp: Yes Soft to palpation, Yes Tenderness to palpation present (GI) (Minimal diffuse tenderness throughout abdomen) and No Guarding due to palpation present (GI) Auscultation: normal bowel sounds Skin: General skin exam: normal color and no rashes or lesions noted Neuro: Speech: normal speech Sensory Exam: normal sensation Extrem: General: normal to inspection Psych: Mental Status: mental status grossly normal Results Labs 06/09/25 23:21 06/09/25 23:21 Labs: Abnormal lab results 06/09/25 06/09/25 06/10/25 Range/Units 23:10 23:21 00:58 WBC 4.1 L (4.5-10.0) K/mm3 Sodium 135 L (137-145) mmol/L Ferritin 347.00 H (11.1-264) ng/mL Total Bilirubin 5.0 H (0.2-1.3) mg/dL Direct Bilirubin 1.9 H (0-0.3) mg/dL Indirect Bilirubin 1.4 H (0-1.1) mg/dL AST 555 H (14-36) U/L ALT 604 H (6-35) U/L Alkaline Phosphatase 142 H (38-126) U/L TSH (Reflex) 0.204 L (0.465-4.68) uIU/mL Urine Bilirubin 2+ H (Negative) Diabetes panel 06/09/25 Range/Units 23:21 Sodium 135 L (137-145) mmol/L Potassium 3.9 (3.4-5.0) mmol/L Chloride 101 (98-107) mmol/L Carbon Dioxide 26 (22-30) mmol/L BUN 11 (7-17) mg/dL Creatinine 0.87 (0.7-1.0) mg/dL Glucose 104 (65-110) mg/dL Calcium 9.5 (8.4-10.2) mg/dL AST 555 H (14-36) U/L ALT 604 H (6-35) U/L Alkaline Phosphatase 142 H (38-126) U/L Total Protein 8.1 (6.3-8.2) g/dL Albumin 4.8 (3.5-5.1) g/dL Calcium panel 06/09/25 Range/Units 23:21 Calcium 9.5 (8.4-10.2) mg/dL Albumin 4.8 (3.5-5.1) g/dL Pituitary panel 06/09/25 06/10/25 Range/Units 23:21 00:58 Sodium 135 L (137-145) mmol/L Potassium 3.9 (3.4-5.0) mmol/L Chloride 101 (98-107) mmol/L Carbon Dioxide 26 (22-30) mmol/L BUN 11 (7-17) mg/dL Creatinine 0.87 (0.7-1.0) mg/dL Glucose 104 (65-110) mg/dL Calcium 9.5 (8.4-10.2) mg/dL Total T3 1.33 (0.82-1.58) NG/ML Adrenal panel 06/09/25 Range/Units 23:21 Sodium 135 L (137-145) mmol/L Potassium 3.9 (3.4-5.0) mmol/L Chloride 101 (98-107) mmol/L Carbon Dioxide 26 (22-30) mmol/L BUN 11 (7-17) mg/dL Creatinine 0.87 (0.7-1.0) mg/dL Glucose 104 (65-110) mg/dL Calcium 9.5 (8.4-10.2) mg/dL Total Bilirubin 5.0 H (0.2-1.3) mg/dL AST 555 H (14-36) U/L ALT 604 H (6-35) U/L Alkaline Phosphatase 142 H (38-126) U/L Total Protein 8.1 (6.3-8.2) g/dL Albumin 4.8 (3.5-5.1) g/dL All other labs normal.
--- NOTE | 2025-06-10 13:12 | P.CONGI_ITS ---
Assessment and Plan Assessment and plan (1) Choledocholithiasis: Code(s): K80.50 - Calculus of bile duct without cholangitis or cholecystitis without obstruction Status: Acute Assessment and Plan: will proceed with ercp to assess biliary systemt and remove stones this can explain elevated liver enzymes which is new for her (2) Elevated liver enzymes: Code(s): R74.8 - Abnormal levels of other serum enzymes Status: Acute Assessment and Plan: from stone in bile duct ercp today and evaluation by surgery for interval cholecystectomy (3) Upper abdominal pain: Code(s): R10.10 - Upper abdominal pain, unspecified Status: Acute (4) Fatty liver: Code(s): K76.0 - Fatty (change of) liver, not elsewhere classified Status: Acute Assessment and Plan: previous diagnosis will need to repeat lft in outpatient setting and based on fib-4 score she can follow-up in office GI Consult Note Consult date/time: 06/10/25 13:12 Reason for consult: choledocholithiasis, elevated liver enzymes HPI: Catina Baugh is a 60 year old female with no major chronic medical problems with severe upper abdominal pain. She has been experiencing recurrent abdominal pain and bloating every other month or so, describes the pain as tenderness throughout her entire abdomen associated with bloating and thought this was food poisoning but more recently she has had an episode every week. This time pain more intense, also decrease appetite. ER labs showed bilirubin of 5.0. AST and ALT elevated at 555 and 604, respectively. Alk-phos 142. CT of the abdomen reviewed and demonstrated a 5 mm stone in the common bile duct with a mildly dilated common duct. Enhancement of the common bile duct pulido is suspicious for ascending cholangitis. One gallstone in the gallbladder, which is normal in size. Patient is started on meropenem, as she has penicillin allergy. No alcohol use, she has been diagnosed with fatty liver. Review of Systems 2 Constitutional: Constitutional: Denies body ache(s) Eyes: Eyes: Denies blurry vision ENT: Reports Normal hearing present Cardiovascular: Cardiovascular: Denies chest pain Respiratory: Respiratory: Denies cough Gastrointestinal: Gastrointestinal: Reports abdominal pain Genitourinary: Genitourinary: Denies dysuria Musculoskeletal: Musculoskeletal: Denies neck pain Integumentary/Breasts: Skin/Breast: Denies rash Neurologic: Denies Abnormal speech present Psychiatric: Psychiatric: Denies behavioral changes [facility] Past Medical History Medical History (Updated 06/10/25 @ 13:47 by Ez Kessler MD) Fatty liver Upper abdominal pain Elevated liver enzymes Social History Social History Smoking packs per day: 1 Smoking cigarettes per day: 20.0 Years smoked: 40 Smoking pack-years: 40.00 Smoking status: Current every day smoker Tobacco type: cigarettes Alcohol intake: never Substance use: never Substance use type: does not use Lack of Transportation: No Lack of Food: Never True Current Housing: I Have Housing Concerned About Future Housing: No Difficulty Paying Gas/Electric Bills: No Difficulty Paying for Meds: No Currently Unemployed: No Education: High School Diploma/GED Difficulty w/ Childcare or Family Care: No Spiritual care concerns: No Meds Home Medications and Allergies Home Medications ?Medication ?Instructions ?Recorded ?Confirmed ?Type No Home Medications 06/10/25 06/10/25 H istory Allergies Allergy/AdvReac Type Severity Reaction Status Date / Time Penicillins Allergy Unknown Rash Verified 06/10/25 13:34 Vital Signs Vital Signs - 24 hr 06/09/25 19:19 06/09/25 23:14 06/09/25 23:15 Temperature 97.6 F Pulse Rate 65 Respiratory Rate 18 Blood Pressure 130/59 L 114/78 127/80 Pulse Oximetry 100 100 98 Oxygen Delivery Room Air 06/09/25 23:31 06/09/25 23:45 06/10/25 00:00 Temperature Pulse Rate Respiratory Rate Blood Pressure 114/71 112/70 111/71 Pulse Oximetry 97 97 97 Oxygen Delivery 06/10/25 00:16 06/10/25 00:30 06/10/25 00:45 Temperature Pulse Rate Respiratory Rate Blood Pressure 118/67 116/73 116/74 Pulse Oximetry 97 98 99 Oxygen Delivery 06/10/25 01:01 06/10/25 01:15 06/10/25 01:38 Temperature Pulse Rate Respiratory Rate Blood Pressure 111/62 111/63 113/75 Pulse Oximetry 99 97 100 Oxygen Delivery 06/10/25 01:46 06/10/25 02:00 06/10/25 02:15 Temperature Pulse Rate Respiratory Rate Blood Pressure 102/69 100/63 103/61 Pulse Oximetry 99 97 96 Oxygen Delivery 06/10/25 02:30 06/10/25 02:45 06/10/25 03:05 Temperature Pulse Rate Respiratory Rate Blood Pressure 107/73 108/73 107/65 Pulse Oximetry 92 94 99 Oxygen Delivery 06/10/25 03:15 06/10/25 03:30 06/10/25 04:01 Temperature Pulse Rate Respiratory Rate Blood Pressure 108/70 105/62 104/67 Pulse Oximetry 96 98 96 Oxygen Delivery 06/10/25 04:15 06/10/25 04:30 06/10/25 04:45 Temperature Pulse Rate Respiratory Rate Blood Pressure 102/66 98/65 L 90/55 L Pulse Oximetry 96 96 96 Oxygen Delivery 06/10/25 05:00 06/10/25 05:19 06/10/25 05:31 Temperature Pulse Rate Respiratory Rate Blood Pressure 91/53 L 110/68 104/65 Pulse Oximetry 95 96 98 Oxygen Delivery 06/10/25 06:16 06/10/25 07:59 Temperature 96.8 F L Pulse Rate 61 Respiratory Rate 18 Blood Pressure 109/76 Pulse Oximetry 97 99 Oxygen Delivery Room Air Exam 2 Const: General: comfortable and no acute distress HENMT: Face/Nose/Sinus: Normal nares present Eyes: General: appearance normal, both eyes and all related structures Neck: Neck: supple Resp: Effort & Inspection: normal respiratory effort Cardio: Rate: regular rate GI: Inspection: non-distended GI Palp: Yes Soft to palpation, Yes Tenderness to palpation present (GI) (Minimal diffuse tenderness throughout abdomen) and No Guarding due to palpation present (GI) Auscultation: normal bowel sounds Skin: General skin exam: no rashes or lesions noted Neuro: Speech: normal speech Sensory Exam: normal sensation Extrem: General: normal to inspection Psych: Mental Status: mental status grossly normal Results Labs 06/09/25 23:21 06/09/25 23:21 Labs: Short CBC 06/09/25 Range/Units 23:21 WBC 4.1 L (4.5-10.0) K/mm3 Hgb 14.8 (12.0-15.0) g/dL Hct 44.1 (37.0-47.0) % Plt Count 178 (150-375) k/mm3 [facility] 06/09/25 23:21 Sodium 135 L Potassium 3.9 Chloride 101 Carbon Dioxide 26 BUN 11 Creatinine 0.87 Glucose 104 Calcium 9.5 Liver Function 06/09/25 06/10/25 Range/Units 23:21 00:58 Total Bilirubin 5.0 H (0.2-1.3) mg/dL Direct Bilirubin 1.9 H (0-0.3) mg/dL AST 555 H (14-36) U/L ALT 604 H (6-35) U/L Alkaline Phosphatase 142 H (38-126) U/L Albumin 4.8 (3.5-5.1) g/dL Urine 06/09/25 Range/Units 23:10 Urine Color Dark yellow (Yellow) Urine Appearance Clear (Clear) Urine pH 5.5 (5.0-9.0) Ur Specific [place] 1.009 (1.001-1.035) Urine Protein Negative (Negative) mg/dL Urine Glucose (UA) Negative (Negative) mg/dL
--- NOTE | 2025-06-10 13:37 | WPDANESEPPF ---
Anes - Initial Pre Proc Eval Procedure: Operation Date: 06/10/25 15:30 Proposed Procedures p Endoscopic Retro Cholangiopancreatogram - Ez Kessler MD Date/Time: 06/10/25 13:37 Surgeon: Jeanine Ang MD Pre Op Diagnosis: choledocholithiasis; poss cholangitis, hyperbiliru Patient Data Age: 60 Gender: F Height: 1.7 m Weight: 71.8 kg Last Vital Signs Temp 36.0 C L 06/10/25 13:35 Pulse 58 L 06/10/25 13:35 Resp 20 06/10/25 13:35 BP 122/65 06/10/25 13:35 Pulse Ox 96 06/10/25 13:35 O2 Del Method Room Air 06/10/25 13:35 Allergies Allergy/AdvReac Type Severity Reaction Status Date / Time Penicillins Allergy Unknown Rash Verified 06/10/25 13:34 Home Medications ?Medication ?Instructions ?Recorded ?Confirmed ?Type No Home Medications 06/10/25 06/10/25 History Laboratory Tests 06/09/25 06/09/25 06/09/25 23:10 23:20 23:21 WBC 4.1 L K/mm3 (4.5-10.0) RBC 4.94 M/mm3 (4.2-5.4) Hgb 14.8 g/dL (12.0-15.0) Hct 44.1 % (37.0-47.0) MCV 89.3 fl (80-100) MCH 30.0 pg (26-34) MCHC 33.6 g/dl (32-36) RDW 12.2 % (11.5-14.5) Plt Count 178 k/mm3 (150-375) MPV 9.6 fl (7.4-10.4) Immature Gran % (Auto) 0.2 % (0-0.5) Neut % (Auto) 68.7 % (45.5-73.1) Lymph % (Auto) 22.3 % (18.3-44.2) [place] % (Auto) 7.3 % (2.6-8.5) Eos % (Auto) 1.0 % (0-4.4) Baso % (Auto) 0.5 % (0.2-1.2) Lymph # (Auto) 0.92 K/mm3 (0.9-3.2) Vernon # (Auto) 0.3 K/mm3 (0.1-0.6) Eos # (Auto) 0.0 K/mm3 (0-0.3) Baso # (Auto) 0.0 K/mm3 (0.0-0.1) Abs Immat Gran (auto) 0.01 K/mm3 (0.00-0.031) Absolute Neuts (auto) 2.8 K/mm3 (1.3-6.7) Absolute Nucleated RBC 0.000 K/mm3 (0.0-0.012) Nucleated RBC % 0.0 % (0.0-0.2) ESR 15 mm/hr (0-20) PT INR APTT Sodium 135 L mmol/L (137-145) Potassium 3.9 mmol/L (3.4-5.0) Chloride 101 mmol/L (98-107) Carbon Dioxide 26 mmol/L (22-30) Anion Gap 8 mmol/L (4-12) BUN 11 mg/dL (7-17) Creatinine 0.87 mg/dL (0.7-1.0) Estim Creat Clear Calc 57 ml/min Estimated GFR > 60 (59 - ) Glucose 104 mg/dL (65-110) Calcium 9.5 mg/dL (8.4-10.2) Iron TIBC % Saturation Ferritin Total Bilirubin 5.0 H mg/dL (0.2-1.3) Direct Bilirubin Indirect Bilirubin AST 555 H U/L (14-36) ALT 604 H U/L (6-35) Alkaline Phosphatase 142 H U/L (38-126) Ammonia C-Reactive Protein Total Protein 8.1 g/dL (6.3-8.2) Albumin 4.8 g/dL (3.5-5.1) Lipase 165 U/L (23-300) Vitamin B12 Folate TSH (Reflex) Free T4 Total T3 Urine Color Dark yellow (Yellow) Urine Appearance Clear (Clear) Urine pH 5.5 (5.0-9.0) Ur Specific [place] 1.009 (1.001-1.035) Urine Protein Negative mg/dL (Negative) Urine Glucose (UA) Negative mg/dL (Negative) Urine Ketones Negative mg/dL (Negative) Ur Blood (Man) Negative (Negative) Urine Nitrate Negative (Negative) Urine Bilirubin 2+ H (Negative) Urine Urobilinogen 1.0 mg/dL (<2.0) Leukocyte Esterase Rfl Negative REFUGIO/UL (Negative) Ethyl Alcohol Hepatitis A IgM Ab Hep Bs Antigen Hep Bs Antibody Hep B Core Total Ab Hep B Core IgM Ab Hepatitis C Ab Screen 06/10/25 06/10/25 00:58 00:58 WBC RBC Hgb Hct MCV MCH MCHC RDW Plt Count MPV Immature Gran % (Auto) Neut % (Auto) Lymph % (Auto) [place] % (Auto) Eos % (Auto) Baso % (Auto) Lymph # (Auto) [place] # (Auto) Eos # (Auto) Baso # (Auto) Abs Immat Gran (auto) Absolute Neuts (auto) Absolute Nucleated RBC Nucleated RBC % ESR PT 13.2 Seconds (11.1-14.7) INR 1.0 APTT 26.1 Seconds (22.3-36.8) Sodium Potassium Chloride Carbon Dioxide Anion Gap BUN Creatinine Estim Creat Clear Calc Estimated GFR Glucose Calcium Iron 99 ug/dL (37-170) TIBC 290 ug/dL (261-462) % Saturation 34 % (20-50) Ferritin 347.00 H ng/mL (11.1-264) Total Bilirubin Direct Bilirubin 1.9 H mg/dL (0-0.3) Indirect Bilirubin 1.4 H mg/dL (0-1.1) AST ALT Alkaline Phosphatase Ammonia 11 umol/L (9-30) C-Reactive Protein < 0.5 mg/dL (<1.0) Total Protein Albumin Lipase Vitamin B12 856.0 pg/mL (239-931) Folate 10.3 ng/mL (2.76->20) TSH (Reflex) 0.204 L uIU/mL (0.465-4.68) Free T4 1.40 ng/dL (0.78-2.19) Total T3 1.33 NG/ML (0.82-1.58) Urine Color Urine Appearance Urine pH Ur Specific [place] Urine Protein Urine Glucose (UA) Urine Ketones Ur Blood (Man) Urine Nitrate Urine Bilirubin Urine Urobilinogen Leukocyte Esterase Rfl Ethyl Alcohol < 10 mg/dL (<10) Hepatitis A IgM Ab Negative (Negative) Hep Bs Antigen Negative (Negative) Hep Bs Antibody Negative Hep B Core Total Ab Cancelled Pending Hep B Core IgM Ab Negative (Negative) Hepatitis C Ab Screen Negative (Negative) Patient hx anesthesia problems: none Family hx anesthesia problems: none Results Review: All pre-operative results and documents have been reviewed as part of the pre-operative evaluation. [facility] Social History Social History Smoking packs per day: 1 Smoking cigarettes per day: 20.0 Years smoked: 40 Smoking pack-years: 40.00 Smoking status: Current every day smoker Tobacco type: cigarettes Alcohol intake: never Substance use: never Substance use type: does not use Lack of Transportation: No Lack of Food: Never True Current Housing: I Have Housing Concerned About Future Housing: No Difficulty Paying Gas/Electric Bills: No Difficulty Paying for Meds: No Currently Unemployed: No Education: High School Diploma/GED Difficulty w/ Childcare or Family Care: No Spiritual care concerns: No Anes - Eval Final PreProcedure Day of Procedure 06/10/25 13:37 Patient weight: normal Heart: regular rate and rhythm Lungs: clear to auscultation Airway: Mallampati scale class II Neurological: alert and oriented Last oral intake: >/= 8 hours ASA classification: II Emergent: no Anesthetic plan: proceed Anesthesia type and monitoring: general ETT and standard monitoring Results Review: All pre-operative results and documents have been reviewed as part of the pre-operative evaluation. Informed Consent: The patient's anesthetic plan and its attendant risks and benefits were discussed with the patient/family/POA. Questions were solicited and answers provided to the satisfaction of the patient/family/POA.
[2025-06-10] MEDS: LACTATED RINGERS 1,000 ML 150 ML IV CONT ×2 (13:39→17:17)
[2025-06-10] MEDS: INDOMETHACIN 50 MG SUPP.RECT RECTAL (13:50)
--- NOTE | 2025-06-10 16:05 | PC.NURSE ---
Patient returned from GI lab per stretcher.
[2025-06-10] MEDS: ACETAMINOPHEN 325 MG TABLET 650 MG PO (20:43)
[2025-06-11] MEDS: LACTATED RINGERS 1,000 ML 150 ML IV CONT ×2 (00:54→08:57)
[2025-06-11 04:50] VITALS: BP 105/59; PULSE 51; RESP 12; TEMP 36.8; O2SAT 98
[2025-06-11] MEDS: ACETAMINOPHEN 325 MG TABLET 650 MG PO (05:11)
[2025-06-11 05:30] LABS: Hematocrit 36.7 % (37.0-47.0); Hemoglobin 12.1 g/dL (12.0-15.0); Mean Corpuscular HGB Conc 33.0 g/dl (32-36); Mean Corpuscular Hemoglobin 30.0 pg (26-34); Mean Corpuscular Volume 90.8 fl (80-100); Platelet Count Result 116 k/mm3 (150-375); Red Blood Count 4.04 M/mm3 (4.2-5.4); White Blood Count 3.0 K/mm3 (4.5-10.0)
[2025-06-11 05:54] LABS: Alanine Aminotransferase 368 U/L (6-35); Albumin Level 3.5 g/dL (3.5-5.1); Alkaline Phosphatase 145 U/L (38-126); Anion Gap 4 mmol/L (4-12); Aspartate Amino Transferase 204 U/L (14-36); Bilirubin,Total 1.9 mg/dL (0.2-1.3); Blood Urea Nitrogen 8 mg/dL (7-17); Calcium 8.9 mg/dL (8.4-10.2); Carbon Dioxide 26 mmol/L (22-30); Chloride 108 mmol/L (98-107); Estimated CRCL calculation 64 ml/min; Estimated Glomerular Filt Rate > 60; Glucose 85 mg/dL (65-110); Potassium 4.0 mmol/L (3.4-5.0); Sodium 138 mmol/L (137-145); Total Protein 6.0 g/dL (6.3-8.2)
[2025-06-11 06:08] LABS: Hep B Core Ab, Total Negative (Negative)
--- NOTE | 2025-06-11 07:16 | PC.NURSE ---
Pt remains A/O x3. Up independently to restroom and voiding orange color urine. See graphics and flowsheets for further assessment.
--- NOTE | 2025-06-11 10:12 | PM.PNGS ---
Progress Note: A&P Assessment and Plan (1) Chronic cholecystitis due to cholelithiasis with choledocholithiasis: Code(s): K80.64 - Calculus of gallbladder and bile duct with chronic cholecystitis without obstruction Status: Acute Assessment and Plan: Doing very well after successful ERCP yesterday. 5 mm gallstone removed from common bile duct. Common duct was difficult to cannulate but ERCP was accomplished. Patient wants to go home rather than stay for laparoscopic cholecystectomy. I am fine with her being discharged when okay with Dr. Meeks and hospitalist service. I have, again, discussed the laparoscopic cholecystectomy procedure as well as its risks, benefits, length of recovery. My office will call the patient on Friday or Friday to discuss scheduling outpatient laparoscopic cholecystectomy. Subjective Subjective Date/Time Seen: 06/11/25 10:12 Patient reports: pain is less (No abdominal pain.), voiding w/o difficulty, afebrile and other (Had a restless night, in and out of bed) Exam Const: General: cooperative, comfortable and awake Orientation/consciousness: patient oriented x3 GI: Inspection: normal to inspection, non-distended, scaphoid and no visible herniation GI Palp: Yes Soft to palpation, No Tenderness to palpation present (GI), No Hernia present and No Palpable mass present Auscultation: absent bowel sounds Objective Data Vital Signs Vital Signs: Vital Signs - 24 hr 06/10/25 13:35 06/10/25 14:00 06/10/25 14:57 Temperature 36.0 C L 36.4 C L 36.3 C L Pulse Rate 58 L 53 L 74 Respiratory Rate 20 14 19 Blood Pressure 122/65 119/69 121/62 Pulse Oximetry 96 100 100 Oxygen Delivery Room Air Simple Face Mask Oxygen Flow Rate 5 06/10/25 15:07 06/10/25 15:17 06/10/25 15:27 Temperature Pulse Rate 70 70 62 Respiratory Rate 19 18 20 Blood Pressure 126/70 112/67 130/79 Pulse Oximetry 100 100 100 Oxygen Delivery Simple Face Mask Room Air Room Air Oxygen Flow Rate 5 06/10/25 15:37 06/10/25 15:47 06/10/25 15:57 Temperature Pulse Rate 55 L 50 L 54 L Respiratory Rate 19 14 18 Blood Pressure 122/75 128/68 125/73 Pulse Oximetry 100 100 98 Oxygen Delivery Room Air Room Air Room Air Oxygen Flow Rate 06/10/25 20:20 06/10/25 20:40 06/10/25 20:40 Temperature 36.3 C L Pulse Rate 65 Respiratory Rate 20 Blood Pressure 105/59 L Pulse Oximetry 99 96 Oxygen Delivery Room Air Room Air Oxygen Flow Rate 06/11/25 04:50 06/11/25 08:00 Temperature 36.8 C Pulse Rate 51 L Respiratory Rate 12 Blood Pressure 105/59 L Pulse Oximetry 98 Oxygen Delivery Room Air Oxygen Flow Rate Intake/Output Intake/Output: Intake & Output 06/08/25 06/09/25 06/10/25 06/11/25 23:59 23:59 23:59 23:59 Intake Total 1260 2740 Balance 1260 2740 Meds/Results Medications: Active Medications Generic Name Dose Route Start Last Admin Trade Name Freq PRN Reason Stop Dose Admin Acetaminophen 650 mg 06/10/25 05:31 06/11/25 05:11 Acetaminophen 325 Mg Tablet PO 650 mg Q4H PRN Administration Mild Pain (1-3) or Fever Lactated Ringer's 1,000 mls @ 150 mls/hr 06/10/25 17:10 06/11/25 08:57 Lr - Lactated Ringers Iv IV CONT 150 mls/hr .[id number] SYMONE Administration Morphine Sulfate 4 mg 06/10/25 05:31 Morphine Sulfate (*Crx) 4 Mg/Ml Inj IV PUSH Q2H PRN Pain Rated 7-10 Ondansetron HCl 4 mg 06/10/25 05:31 Ondansetron Inj 4 Mg/2 Ml Vial IV PUSH Q4H PRN Nausea Radiology Results: ITS Impressions Abdomen/Pelvis CT 06/10/25 07:21 IMPRESSION: 1. 5 mm stone in the common bile duct with mildly dilated common duct. Enhancement of the common bile duct pulido is suspicious for ascending cholangitis. 2. Cholelithiasis. Abdomen Ultrasound 06/10/25 10:30 IMPRESSION: CBD is still dilated at 8 mm. Gallbladder sludge. Fatty liver. Labs Labs: Laboratory Results - last 24 hr 06/10/25 06/11/25 00:58 05:21 WBC 3.0 L RBC 4.04 L Hgb 12.1 Hct 36.7 L MCV 90.8 MCH 30.0 MCHC 33.0 RDW 12.3 Plt Count 116 L MPV 9.5 Sodium 138 Potassium 4.0 Chloride 108 H Carbon Dioxide 26 Anion Gap 4 BUN 8 Creatinine 0.80 Estim Creat Clear Calc 64 Estimated GFR > 60 Glucose 85 Calcium 8.9 Total Bilirubin 1.9 H AST 204 H ALT 368 H Alkaline Phosphatase 145 H Total Protein 6.0 L Albumin 3.5 Hep B Core Total Ab Negative Imaging Attestation: I personally reviewed and interpreted this imaging study as follows: (ERCP imaging) My impression: Biliary structures opacify Radiologist's impression: FINDINGS/IMPRESSION: No radiologist was present or involved at the time of the procedure. Static images were submitted for interpretation. Images demonstrate opacification of the CBD and part of the intrahepatic biliary tree. Fluoroscopic documentation of ERCP. Please refer to the operative note for complete procedural details
--- NOTE | 2025-06-11 10:54 | P.DS_ITS ---
DS: Admitting Diagnosis Discharge Date 06/11/25 Admitting Diagnosis Choledocholithiasis DS: Discharge Diagnosis Discharge Diagnosis (1) Choledocholithiasis: Code(s): K80.50 - Calculus of bile duct without cholangitis or cholecystitis without obstruction Status: Acute (2) Elevated liver enzymes: Code(s): R74.8 - Abnormal levels of other serum enzymes Status: Acute (3) Chronic cholecystitis due to cholelithiasis with choledocholithiasis: Code(s): K80.64 - Calculus of gallbladder and bile duct with chronic cholecystitis without obstruction Status: Acute DS: Summary Hospital Course Reason for hospitalization: Abdominal pain with choledocholithiasis Hospital Course: Patient is a 60-year-old female with past med history of GERD presents the ED on 06/10/25 with chief complaint of abdominal pains and bloating. Patient has had increased episodes of abdominal discomfort over the past year, usually once a month and now more frequently once a week. On initial workup she was found to have transaminitis and choledocholithiasis with a obstructing stone 5 mm in the distal common bile duct. Patient had ERCP with Dr. Kessler on 06/10/25 with successful extraction of biliary stone and placement of pancreatic stent. Postprocedure LFTs are downtrending. Her diet was advanced to low-fat diet. General surgery is planning interval laparoscopic cholecystectomy for chronic cholecystitis outpatient in the next few weeks (Dr. Kingsley's office will call patient this week). At time of discharge, her labs are improving, vitals are stable, patient is stable for discharge home. She understands and agrees with plan. Status at Discharge Cognitive/behavioral status at discharge: Baseline Time Spent with Patient Time attestation: Total time spent providing and/or coordinating discharge services: 35 minutes Exam Narrative: - GENERAL: A pleasant woman No acute di stress. Well-nourished. - EYES: EOMI. Anicteric. - HENT: Moist mucous membranes. - LUNGS: Clear to auscultation bilateral ly, no wheezing, rhonchi, or rales. - CARDIOVASCULAR: Regular rate and rhyth m. - ABDOMEN: Soft, non-tender and non-dist ended. - EXTREMITIES: No edema. Peripheral puls es 2+. Non-tender. - NEUROLOGIC: No focal neurological defi cits. CN II-XII grossly intact. - PSYCHIATRIC: Awake, Alert and oriented x 3. Appropriate mood and affect. DS: Data Data Completed and Pending Labs on day of discharge: Labs from last 24 hours 06/11/25 06/10/25 05:21 00:58 WBC 3.0 L RBC 4.04 L Hgb 12.1 Hct 36.7 L MCV 90.8 MCH 30.0 MCHC 33.0 RDW 12.3 Plt Count 116 L MPV 9.5 Sodium 138 Potassium 4.0 Chloride 108 H Carbon Dioxide 26 Anion Gap 4 BUN 8 Creatinine 0.80 Estim Creat Clear Calc 64 Estimated GFR > 60 Glucose 85 Calcium 8.9 Total Bilirubin 1.9 H AST 204 H ALT 368 H Alkaline Phosphatase 145 H Total Protein 6.0 L Albumin 3.5 Hep B Core Total Ab Negative Procedures/Treatments: ERCP 06/10/[address] Kessler: Pancreatic stent placed, 5 mm stone removed from middle common bile duct Imaging Radiologist's impression: CT abd pel 06/10/25 IMPRESSION: 1. 5 mm stone in the common bile duct with mildly dilated common duct. Enhancement of the common bile duct pulido is suspicious for ascending cholangitis. 2. Cholelithiasis. GB US 06/10/25 IMPRESSION: CBD is still dilated at 8 mm. Gallbladder sludge. Fatty liver. Discharge Plan Discharge Attending physician on discharge: Tony Velasco Consulting providers: Ez Kessler; Rusty Kingsley Discharging Clinician: Tony Velasco Anticipated Discharge Date/Time: 06/11/25 13:00 Patient Disposition: Home Activity: unlimited Diet: low fat Discharge Instructions: General surgery instructions * Stay on low-fat diet * Dr. Zurita office will call you on Friday or Friday this week to schedule for outpatient laparoscopic cholecystectomy. Patient Instructions: Antibiotic Form, How to Stop Smoking (GEN) Patient Language: Tajik Stand Alone Forms: General Discharge Information Follow-up/Referrals: Rusty Kingsley MD [Physician, General Surgery] - Call for Appointment JohnLandon MD [Primary Care Provider, Unknown] - 2 Weeks Discharge Medications: Continued No Home Medications Date of admission: 06/10/25 05:31 Primary Care Provider: JohnLandon Admitting Provider: Jeanine Ang Attending physician on admission: Jeanine Ang Condition: Stable Hospitalist MIPS Heart Failure (Exclusion) Patient has history of Heart Transplant or Left Ventricular Assistive Device?: No IF YES, STOP HERE Heart Failure (Qualifier) Patient has current or prior documentation of LVEF less than or equal to 40%, or mod/servere depressed LVSF?: No IF NO, STOP HERE
== END 2025-06-11 13:25 | disposition home or self-care (01) ==
LOC: ANHED 06-10 05:34 → ANH3MED 06-10 07:41
PROVIDERS: Internal Medicine Gastroenterology; Student in an Organized Health Care Education/Training Program; Admitting Provider General Practice; Emergency Provider Registered Nurse; PCP Family Medicine; Visit Provider Student in an Organized Health Care Education/Training Program
PROC: (CPT 43260; principal; 2025-06-10 15:30)
DX: K80.50 Calculus of bile duct without cholangitis or cholecystitis without obstruction (principal); R74.8 Abnormal levels of other serum enzymes; R10.10 Upper abdominal pain, unspecified; R10.9 Unspecified abdominal pain; K76.0 Fatty (change of) liver, not elsewhere classified; F17.210 Nicotine dependence, cigarettes, uncomplicated; R93.3 Abnormal findings on diagnostic imaging of other parts of digestive tract; R94.5 Abnormal results of liver function studies
CPT/HCPCS: 43274; 43264; 36415; 74177; 74329; 76705; 80053; 81001; 82077; 82140; 82248; 82607; 82728; 82746; 83540; 83550; 83690; 84439; 84443; 84480; 85025; 85027; 85610; 85652; 85730; 86140; 86704; 86705; 86706; 86709; 86803; 87040; 87340; 96361; 99285; A9270; C2625; G0378; J0330; J2185; J2704; J7030; J7120; Q9966; Q9967